=== PATIENT | female | born 1970 | race Caucasian/White ===

== ENCOUNTER 2016-07-25 04:03 | Observation (INO) | payer BC ==
[2016-07-21 08:44] LABS: HEMATOCRIT 40.3 % (36.0-48.0); HEMOGLOBIN 13.3 g/dL (12.0-16.0)
--- NOTE | ~2016-07-25 | OP ---
Record Of Operation [facility] [address] [place]. [address] NAME: NICK TALBOT : 66 STATUS : REG [facility] [place] PAT#: [id number] AGE: 45 ADM/REG DATE : 07/25/16 MR#: [id number] REPORT SERV DATE: 07/25/16 DICTATED BY: WOLFGANG KUMARI DATE: 07/25/16 REPORT STATUS : Draft TRANSCRIBED BY: MODL DATE: 07/25/16 DATE OF PROCEDURE: 07/25/2016 PREOPERATIVE DIAGNOSIS: Herniated nucleus pulposus, central left, C5-6. POSTOPERATIVE DIAGNOSIS: Herniated nucleus pulposus, central left, C5-6. PROCEDURES: 1. Microscopic and navigation-assisted surgery. 2. Anterior cervical diskectomy, C5-6. 3. Anterior Prestige LP disk arthroplasty. SURGEON: Wolfgang Kumari D.O. B[employer]IAL [employer]ULT DELIVERER AND INSTALLER: Tessy Owen. ANESTHESIA: General. BLOOD LOSS: 20 mL. INDICATIONS FOR SURGERY: A 45-year-old female, who has had a rather long history of neck pain, left shoulder, and arm pain. She has tried for months with conservative care that included time, medication, physical therapy, and injections. Plain x-rays were normal. MRI showed a moderate-size disk herniation. The patient was not making progress. She wanted to make and ultimately had an EMG, which was positive for an active denervation of the C6 nerve root on the left. After failing all the above with the positive imaging and electrophysiology findings, the patient was brought to surgery for the above procedure. Prior to surgery, risks, benefits, alternatives, and expectations were explained. Consent form has been signed. DESCRIPTION OF PROCEDURE: Antibiotic prophylaxis given. Neurophysiology monitoring leads were inserted. The patient was brought to the operative suite, general anesthetic including endotracheal intubation was administered. While in a supine position on the fluoroscopic Nixon frame, a small bolster was placed behind the shoulder and the neck was in neutral alignment. The scalp was painted with Betadine solution. De Guzman three-point fixation was attached to the skull using 60 pounds of torque in standard position. The De Guzman was attached to the Nixon bed and the [employer] navigational registration frame was attached to the [place]. Because of the complexity of the surgery, the need to identify correct level of surgery intraoperatively, as well as desire to carry out the safest and most precise dissection with least amount of radiation exposure, I felt the intraoperative navigation was mandatory. Intraoperative CT scan with O-arm was obtained. CT information was used to register the navigational system. With navigational assistance, I identified the C5-6 level. At the disk level on the left Record Of Operation [facility] [address] [place]. [address] NAME: NICK TALBOT : 66 STATUS : REG [facility] [place] PAT#: [id number] AGE: 45 ADM/REG DATE : 07/25/16 MR#: [id number] REPORT SERV DATE: 07/25/16 DICTATED BY: WOLFGANG KUMARI DATE: 07/25/16 REPORT STATUS : Draft TRANSCRIBED BY: LISA DATE: 07/25/16 side, a transverse 2.5 cm skin incision was carried out. The platysma was incised in line with the skin incision. The superficial layer of the deep cervical fascia was released along the anterior border of sternocleidomastoid. Blunt dissection was carried out to the retropharyngeal space, where the longus colli muscle was subperiosteally elevated. Retractors were placed. I re-identified the correct level of surgery intraoperatively. After retractors were placed, I placed a [place] distractor pin in the mid body of the C5 and C6 in the midline. The microscope was sterilely draped and used throughout the remainder of the procedure. With navigational assistance, I identified the left and right boundaries of the disk and also identified the location of the foramen transversarium at both C6 and C5. I then completed the diskectomy by incising the disk and carried out removal of this with curettes and rongeurs. As I moved from anterior to posterior, I just slowly widened the disk space, so I had plenty of visualization posteriorly. The disk was completely removed. There was moderate-size herniation on the left side. The posterior longitudinal ligament was taken down. Epidural hemostasis was obtained. A small amount of the inferior lip of the body of C5 was removed with a 2 mm xenia bur. The endplate cartilage was removed. A C-arm was then sterilely draped and brought in the operative field and used throughout the remainder of the surgery. We did a trial to determine the appropriate size, height, and depth. The size of the implant chosen was a 7 mm in height, 14 mm in depth. The drill guide was then placed in the midline. I checked the AP view to make sure we had proper rotational placement. The four holes were drilled. The drill guide was removed. The cutting rail guide was then used through the drill holes and after the drill guide was removed, the final implant was impacted into the proper position. Intraoperative AP and lateral x-rays were taken throughout the entire procedure verifying excellent position of the implants. The wound was irrigated. Meticulous hemostasis was obtained. The retractor was removed. The wound appeared completely dry and normal and no bleeding etc. The platysma was closed with a running 3-0 Vicryl suture. The subcutaneous tissue was closed with 3-0 Vicryl suture. Subcuticular 4-0 PDS was used for skin closure. Sterile dressings were applied. The patient was awakened, extubated, and taken to the recovery room in satisfactory condition having tolerated the procedure well. Sponge, needle, and instrument counts were correct. No intraoperative complications noted. SHERRIE/YUMIKOL Wolfgang Kumari D.O. / [id number] CC: Luis Morse D.O.
[~2016-07-25 04:03] MED LIST: ACET500CAP PO; ALLEGRA180 PO; EXCEDRIN; EXCEDRIN EXTRA1 EACH PO; HALF81 PO; METHOC500B PO; NEUR100 PO; TRAZODONE150 MG PO; ULTRAM50 PO; WELL75 PO; ZYRTEC ALLGY10 MG PO
[2016-07-26] MEDS ORDERED: NAP500 PO (09:43)
[2016-07-26] MEDS ORDERED: OXYCOD PO (09:43)
== END 2016-07-26 13:39 | disposition home or self-care (01) ==
LOC: SDC 04:03 → 3SO 15:14
PROVIDERS: Orthopaedic Surgery Orthopaedic Surgery of the Spine
PROC: 0RG10A0 Fusion of Cervical Vertebral Joint with Interbody Fusion Device, Anterior Approach, Anterior Column, Open Approach (ICD-10-PCS; principal; 2016-07-25 05:45)
DX: M50.222 Other cervical disc displacement at C5-C6 level (principal)
CPT/HCPCS: 82962; 85014; 85018; 87641; 88304; 96374; 96375; 96376; A9270-GY; G0378; J0690; J1170; J1885; J2250; J2405; J2550; J2710; J3010